=== PATIENT | female | born 1960 ===

== ENCOUNTER 2022-02-07 09:14 | Outpatient (CLI) | payer OTHER | END 2022-02-07 09:15 | disposition home or self-care (01) | LOC: LAB 09:14 | PROVIDERS: ATTEND Radiology Diagnostic Radiology | DX: D25.1 Intramural leiomyoma of uterus (principal) ==

== ENCOUNTER 2022-02-09 08:11 | Outpatient (CLI) | payer OTHER | END 2022-02-09 08:13 | disposition home or self-care (01) | LOC: MRI 08:11 | DX: D25.1 Intramural leiomyoma of uterus (principal); R19.00 Intra-abdominal and pelvic swelling, mass and lump, unspecified site | CPT/HCPCS: 72198 ==

== ENCOUNTER 2022-10-27 13:43 | Outpatient (CLI) | payer OTHER | END 2022-10-27 13:48 | disposition home or self-care (01) | LOC: RAD 13:43 | DX: M41.9 Scoliosis, unspecified (principal) ==

== ENCOUNTER 2023-01-12 13:19 | Outpatient (CLI) | payer OTHER | END 2023-01-12 13:32 | disposition home or self-care (01) | LOC: MAMO-SONO 13:19 | DX: E03.9 Hypothyroidism, unspecified (principal); N64.9 Disorder of breast, unspecified ==